=== PATIENT | female | born 1960 | race American Indian/Alaskan Native ===

== ENCOUNTER 2017-10-22 09:46 | Emergency (ER) | payer OTHER ==
[2017-10-22 09:56] VITALS: BP 140/99
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
== END 2017-10-22 12:04 | disposition home or self-care (01) ==
LOC: ED 09:46
DX: M79.662 Pain in left lower leg (principal); F41.9 Anxiety disorder, unspecified; I10 Essential (primary) hypertension; Z88.0 Allergy status to penicillin; V89.2XXA Person injured in unspecified motor-vehicle accident, traffic, initial encounter; Y93.89 Activity, other specified; Y99.8 Other external cause status; Y92.410 Unspecified street and highway as the place of occurrence of the external cause
CPT/HCPCS: 99282